=== PATIENT | female | born 1990 | race Caucasian/White ===

== ENCOUNTER 2018-03-21 11:51 | Emergency (ER) | payer MEDICARE, MEDICAID ==
[~2018-03-21] VITALS: Ht 157.5 cm; Wt 45.0 kg
[~2018-03-21 11:51] MED LIST: IBUP-1984 PO; LAMO25TA62 PO; LORA1TAB PO; METH-360 PO; NORCO10T PO; RISP2TAB44 PO; VENL-190 PO; VENL-191 PO
[2018-03-21 12:15] VITALS: BP 138/79
[2018-03-21] MEDS ORDERED: proCHLORperazine 10mg tablet PO ONE (13:00)
[2018-03-21] MEDS ORDERED: PROC-8 PO (13:01)
== END 2018-03-21 13:08 | disposition home or self-care (01) ==
LOC: ER 11:52
DX: R51 Headache (principal); Z87.891 Personal history of nicotine dependence; Z56.0 Unemployment, unspecified; Z79.899 Other long term (current) drug therapy; Z88.5 Allergy status to narcotic agent
CPT/HCPCS: 99282; Q0164

== ENCOUNTER 2019-06-05 14:33 | Emergency (ER) | payer MEDICARE ==
[~2019-06-05] VITALS: Ht 157.5 cm; Wt 45.0 kg
[~2019-06-05 14:33] MED LIST changes: +PROC-8 PO
[2019-06-05 14:39] VITALS: BP 123/80
--- NOTE | 2019-06-05 14:48 | NUR ---
PT PROCEDURE SETUP DONE AT BEDSIDE PER LICHA COUCH SHE IS NOT GOING TO DO PROCEDURE BARTHOLIN CYST IS MOVING AND IS 3-4MM IN SIZE.WILL RETURN THE SUPPLIES ITS NOT OPENED YET.
[2019-06-05] MEDS ORDERED: LIDOcaine/epinephrine TOPICAL 5 ML BTL TOP ONE (14:50)
[2019-06-05] MEDS ORDERED: LIDOcaine 1% w/epiNEPHrine 1:200,000 30ml vial IM ONE (14:50)
[2019-06-05] MEDS ORDERED: SULF1TAB49 PO (15:04)
== END 2019-06-05 15:19 | disposition home or self-care (01) ==
LOC: ER 14:34
DX: N75.0 Cyst of Bartholin's gland (principal); F32.9 Major depressive disorder, single episode, unspecified; F11.90 Opioid use, unspecified, uncomplicated; Z79.899 Other long term (current) drug therapy; Z88.6 Allergy status to analgesic agent; Z88.8 Allergy status to other drugs, medicaments and biological substances; Z56.0 Unemployment, unspecified
CPT/HCPCS: 99283

== ENCOUNTER 2019-06-08 17:02 | Emergency (ER) | payer MEDICARE ==
[~2019-06-08] VITALS: Ht 157.5 cm; Wt 44.1 kg
[~2019-06-08 17:02] MED LIST changes: +SULF1TAB49 PO
[2019-06-08 17:13] VITALS: BP 101/60
[2019-06-08] MEDS ORDERED: SULF1TAB49 PO (18:58)
== END 2019-06-08 19:08 | disposition home or self-care (01) ==
LOC: ER 17:02
DX: N75.0 Cyst of Bartholin's gland (principal); N76.4 Abscess of vulva; F32.9 Major depressive disorder, single episode, unspecified; F11.90 Opioid use, unspecified, uncomplicated; Z56.0 Unemployment, unspecified; Z88.5 Allergy status to narcotic agent; Z88.8 Allergy status to other drugs, medicaments and biological substances; Z79.899 Other long term (current) drug therapy
CPT/HCPCS: 56405; 56420; 99284

== ENCOUNTER 2019-06-09 12:45 | Emergency (ER) | payer MEDICARE ==
[~2019-06-09] VITALS: Ht 157.5 cm; Wt 100.0 kg
[2019-06-09 13:07] VITALS: BP 100/60
[2019-06-09] MEDS ORDERED: LIDOcaine/epinephrine TOPICAL 5 ML BTL TOP ONE (14:15)
[2019-06-09] MEDS ORDERED: LIDOcaine Viscous 15ml cup MM PRN (14:30)
== END 2019-06-09 15:40 | disposition home or self-care (01) ==
LOC: ER 12:46
DX: N75.1 Abscess of Bartholin's gland (principal); F32.9 Major depressive disorder, single episode, unspecified; Z56.0 Unemployment, unspecified; Z88.5 Allergy status to narcotic agent; Z88.8 Allergy status to other drugs, medicaments and biological substances; Z79.899 Other long term (current) drug therapy
CPT/HCPCS: 56420; 99283

== ENCOUNTER 2021-06-19 13:40 | Day surgery (SDC) | payer MEDICARE ==
[2021-06-13 16:27] LABS: BASOPHILS # (AUTO) 0.1 X10'3 (0-0.2); BASOPHILS % (AUTO) 0.5 % (0-1); EOSINOPHILS # (AUTO) 0.1 X10'3 (0-0.9); EOSINOPHILS % (AUTO) 1.2 % (0-6); LYMPHOCYTES # (AUTO) 2.6 X10'3 (1.1-4.8); MEAN CORPUSCULAR HEMOGLOBIN 34.2 PG (27.0-31.0); MEAN CORPUSCULAR HGB CONC 33.8 g/dL (33.0-36.5); MEAN CORPUSCULAR VOLUME 101.1 FL (78-98); MEAN PLATELET VOLUME 10.3 FL (7.4-10.4); MONOCYTES # (AUTO) 0.8 X10'3 (0-0.9); MONOCYTES % (AUTO) 7.3 % (2-12); NEUTROPHILS # (AUTO) 6.8 X10'3 (1.8-7.7); PRE OP HEMATOCRIT 47.3 % (35.0-45.0); PRE OP PLATELET COUNT 225 X10'3 (140-440); RED BLOOD COUNT 4.68 X10'6 (4.20-5.60); RED CELL DISTRIBUTION WIDTH 12.9 % (11.5-14.5)
[2021-06-13 16:30] LABS: CLARITY,URINE CLEAR (Clear); COLOR,URINE YELLOW (Yellow); GLUCOSE, URINE NEGATIVE (Neg); KETONES,URINE NEGATIVE (Neg); LEUKOCYTE ESTERASE ,URINE NEGATIVE (Neg); NITRITES, URINE NEGATIVE (Neg); OCCULT BLOOD,URINE NEGATIVE (Neg); PROTEIN,URINE NEGATIVE (Neg)
[2021-06-13 16:32] LABS: HCG SERUM QL NEGATIVE
[2021-06-13 16:32] LABS: UA COLLECTION TYPE CLN CATCH MIDSTREAM
[2021-06-13 16:36] LABS: ALBUMIN 3.7 G/DL (3.4-5.0); ALKALINE PHOSPHATASE 55 IU/L (46-116); BLOOD UREA NITROGEN 12 MG/DL (7-18); BUN/CREATININE RATIO 13.8 (6.6-38.0); CALCIUM 8.2 MG/DL (8.5-10.1); CHLORIDE 104 MMOL/L (99-107); CREATININE 0.87 MG/DL (0.40-0.90); PRE OP ALT 17 U/L (30-65); PRE OP ANION GAP 8 (8-16); PRE OP AST 16 U/L (10-37); PRE OP BILIRUB, TOTAL 0.8 MG/DL (0.0-1.0); PRE OP GLUCOSE 85 MG/DL (70-104); PRE OP SODIUM 141 MMOL/L (135-145); TOTAL CARBON DIOXIDE 29.3 MMOL/L (24-32); TOTAL PROTEIN 7.5 G/DL (6.4-8.2); eGFR 75 ML/MIN
[~2021-06-19] VITALS: Ht 157.5 cm; Wt 51.7 kg
[2021-06-19] VITALS (9 sets, daily range): BP systolic 93–127; BP diastolic 62–89
[~2021-06-19 13:40] MED LIST changes: +BUPR1TAB58 SL; -IBUP-1984 PO; -LAMO25TA62 PO; -LORA1TAB PO; -METH-360 PO; -NORCO10T PO; -PROC-8 PO; -RISP2TAB44 PO; -SULF1TAB49 PO; -VENL-190 PO; -VENL-191 PO; +ceFOXitin 2GM-NS 100mL ADDvant 100 ML IV ONE; +famotidine 20mg tablet PO ONE; +ringers solution, lacted 1,000 ML IV SCH
[2021-06-19] MEDS ORDERED: sevoflurane 250ml liquid IH ONE (15:00)
[2021-06-19] MEDS ORDERED: BUPIVAcaine/PF 2.5mg/ml (0.25%) 10ml vial ONE (15:52)
[2021-06-19] MEDS ORDERED: fentaNYL/PF 50MCG/1 ML 2ML syringe ONE ×2 (15:52→16:01)
[2021-06-19] MEDS ORDERED: ketamine 50mg/5ml syringe ONE (15:53)
[2021-06-19] MEDS ORDERED: midazolam 1 mg/ML 2ml injection ONE ×2 (15:53→16:25)
[2021-06-19] MEDS ORDERED: propofol inj 20 ML IV ONE (16:26)
[2021-06-19] MEDS ORDERED: LIDOcaine 1%/PF 5ML 10 MG/ML VIAL ONE (16:26)
[2021-06-19] MEDS ORDERED: acetaminophen 1,000mg/100ml IV 100 ML IV ONE (16:26)
[2021-06-19] MEDS ORDERED: ondansetron/PF 4mg/2ml inj ONE (16:26)
--- NOTE | 2021-06-19 16:35 | NUR ---
Received from OR via [facility], accompanied by Anesthesiologist DR. MORENO and report given by Anesthesiologist. PATIENT STILL SLEEPY, NO S/S OF PAIN, V/S WNL, CSM INTACT, SCD ON, PIV TO RUE, PERIPAD W/NO DRAINAGE
[2021-06-19] MEDS ORDERED: meperidine/PF 25mg/ml syringe IV PRN ×2 (17:00)
[2021-06-19] MEDS ORDERED: ondansetron/PF 4mg/2ml inj IV PRN (17:00)
[2021-06-19] MEDS ORDERED: HYDROmorphone/PF 0.2 MG/ML SYRINGE IV PRN ×2 (17:00)
[2021-06-19] MEDS ORDERED: ringers solution, lacted 1,000 ML IV SCH (17:00)
--- NOTE | 2021-06-19 17:55 | NUR ---
ALL DISCHARGE CRITERIA HAS BEEN MET. VSS, PAIN AT A TOLERABLE LEVEL, ABLE TO SAFELY AMBULATE AND TRANSFER SELF, DM PAD PROVIDED-NO DRAINAGE PRESENTLY. IV TAKEN OUT WITHOUT ANY COMPLICATIONS. ALL DISCHARGE INSTRUCTIONS COVERED WITH PATIENT AND ALL QUESTIONS ANSWERED. PATIENT CHOSE TO WALK D/T PAIN WHEN SITTING, TAKEN TO PERSONAL VEHICLE WHERE FAMILY/FRIEND DROVE PATIENT HOME.
== END 2021-06-19 17:55 | disposition home or self-care (01) ==
LOC: PRE-OP 13:40 → PAS 17:55
PROVIDERS: ATTEND Obstetrics & Gynecology Obstetrics
DX: N75.0 Cyst of Bartholin's gland (principal); F41.9 Anxiety disorder, unspecified; F31.9 Bipolar disorder, unspecified; F11.11 Opioid abuse, in remission; F17.210 Nicotine dependence, cigarettes, uncomplicated; Z79.899 Other long term (current) drug therapy; Z88.5 Allergy status to narcotic agent; Z88.8 Allergy status to other drugs, medicaments and biological substances; Z20.822 Contact with and (suspected) exposure to COVID-19
CPT/HCPCS: 36415; 56440; 80053; 81003; 82948; 84703; 85025; 86885; 86900; 86901; J0131; J0694; J2175; J2250; J2405; J2704; J3010; J3490; J7120; U0003; U0005; Z7506; Z7512; A4618; A7000